=== PATIENT | female | born 1940 | race Caucasian/White ===

== ENCOUNTER 2020-02-12 09:09 | Emergency (ER) | payer MEDICARE ==
[~2020-02-12] VITALS: Ht 160 cm; Wt 77.6 kg
[~2020-02-12 09:09] MED LIST: COUMADIN5 MG PO; CYCLOBENZAPRINE10 MG PO; DILTIAZEM ER180 MG PO; LOVENOX80 MG SUB-Q; PREMARIN0.625 MG PO; TRAMADOL HCL50 MG PO; VITAMIN D35000 UNI1 PO
[2020-02-12] MEDS ORDERED: HYDROCHLOROTHIA25 MG PO (09:30)
[2020-02-12] MEDS ORDERED: LORATADINE10 MG PO (09:32)
[2020-02-12] MEDS ORDERED: ASPIR 8181 MG PO (09:32)
--- OUTSIDE RECORDS SUMMARY | 2020-02-12 10:16 | XMS ---
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 Cynthia has no Care Guidelines for this patient. Travis VISIT COUNT (12 MO.) 1 [facility] TOTAL 1 NOTE: Visits indicate total known visits. ED/C VISIT TRACKING (12 MO.) 02/12/2020 09:10 [facility] TYPE: Emergency COMPLAINT: - POSSIBLE BLOOD CLOT/ LEG INPATIENT VISIT TRACKING (12 MO.) No inpatient visits to display in this time frame [email or web address]
== END 2020-02-12 10:23 | disposition home or self-care (01) ==
LOC: ED 09:09
DX: M71.21 Synovial cyst of popliteal space [Baker], right knee (principal); I10 Essential (primary) hypertension; Z79.899 Other long term (current) drug therapy
CPT/HCPCS: 93971; 99283-25

== ENCOUNTER 2021-06-21 12:03 | Emergency (ER) | payer MEDICARE ==
[~2021-06-21] VITALS: Ht 160 cm; Wt 77.6 kg
[~2021-06-21 12:03] MED LIST changes: +ASPIR 8181 MG PO; +HYDROCHLOROTHIA25 MG PO; +LORATADINE10 MG PO
[2021-06-21] MEDS ORDERED: STOOL SOFTENER250 MG PO (13:21)
[2021-06-21] MEDS ORDERED: OXYCODONE HCL5 MG PO (13:21)
[2021-06-21] MEDS ORDERED: DILTIAZEM 24HR120 MG PO (13:21)
== END 2021-06-21 14:38 | disposition home or self-care (01) ==
LOC: ED 12:03
DX: M25.561 Pain in right knee (principal); I10 Essential (primary) hypertension; Z79.899 Other long term (current) drug therapy; W18.30XA Fall on same level, unspecified, initial encounter
CPT/HCPCS: 73560; 85025; 96374; 96375; 96376; 99284-25; J1170; J1885; J2405

== ENCOUNTER 2025-04-19 15:28 | Emergency (ER) | payer MEDICARE ==
[~2025-04-19] VITALS: Ht 160 cm; Wt 65.0 kg
[~2025-04-19 15:28] MED LIST changes: +DILTIAZEM 24HR120 MG PO; +OXYCODONE HCL5 MG PO; +STOOL SOFTENER250 MG PO
[2025-04-19] MEDS ORDERED: ondansetron HCL 4 MG/2 ML VIAL IV ONE (16:00)
[2025-04-19] MEDS ORDERED: MORPHINE SULFATE 4 MG/ML VIAL IV ONE (16:00)
[2025-04-19] MEDS ORDERED: HYDROCODON-ACE1 EA10 PO (18:29)
[2025-04-19] MEDS ORDERED: CEPHALEXIN500 M1 PO (18:29)
[2025-04-19] MEDS ORDERED: CEPHALEXIN MONOHYDRATE 500 MG HOME.PACK PO ONE (18:30)
[2025-04-19] MEDS ORDERED: HYDROCODONE BIT/ACETAMINOPHEN 5/325 MG 1 TAB HOME.PACK PO ONE (18:30)
[2025-04-19 19:35] VITALS: BP 138/54
== END 2025-04-19 19:35 | disposition home or self-care (01) ==
LOC: ED 15:28
DX: S81.811A Laceration without foreign body, right lower leg, initial encounter (principal); M25.571 Pain in right ankle and joints of right foot; I10 Essential (primary) hypertension; Z79.899 Other long term (current) drug therapy; W18.30XA Fall on same level, unspecified, initial encounter
CPT/HCPCS: 12006; 70450; 72125; 73590; 99284-25; A9270; J2270; J2405

== ENCOUNTER 2025-04-24 19:56 | Emergency (ER) | payer MEDICARE ==
[~2025-04-24] VITALS: Ht 160 cm; Wt 65.0 kg
[~2025-04-24 19:56] MED LIST changes: +CEPHALEXIN500 M1 PO; +HYDROCODON-ACE1 EA10 PO
--- OUTSIDE RECORDS SUMMARY | 2025-04-24 20:04 | XMS ---
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 Cynthia has no Care Guidelines for this patient. Travis V[facility] COUNT ([address] [facility] NOTE: Visits indicate total known visits. ED/C VISIT TRACKING (12 MO.) [facility] COMPLAINT: - FEVER, LEG PAIN 04/19/2025 15:[address] 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
[2025-04-24] MEDS ORDERED: MORPHINE SULFATE 4 MG/ML VIAL IV ONE (20:45)
[2025-04-24] MEDS ORDERED: ondansetron HCL 4 MG/2 ML VIAL IV ONE ×2 (20:45→22:15)
[2025-04-24 21:18] LABS: BASOPHILS 0.5 % (0.1-1.2); EOSINOPHILS 2.1 % (0.7-5.8); HEMATOCRIT 33.9 % (34.1-44.9); HEMOGLOBIN 11.4 g/dL (11.2-15.7); LYMPHOCYTES 11.9 % (19.3-51.7); MCH 31.1 PG (25.6-32.2); MCHC 33.6 g/dL (32.2-35.5); MCV 92.4 fL (79.4-94.8); MONOCYTES 7.7 % (4.7-12.5); NEUTROPHILS 77.5 % (34.0-71.1); PLATELET COUNT 215 K/uL (182-369); RBC 3.67 M/uL (3.93-5.22)
[2025-04-24 21:33] LABS: ALBUMIN 3.6 g/dL (3.4-5.0); ALBUMIN/GLOBULIN RATIO 1.16 (1.1-2.4); ANION GAP 12.8 (7-21); BILIRUBIN, TOTAL 0.7 mg/dL (0.2-1.0); BUN/CREATININE RATIO 18.18 (6.0-28.6); CALCIUM 8.7 mg/dL (8.5-10.1); CREATININE, SERUM 0.77 mg/dL (0.55-1.02); POTASSIUM 3.8 mmol/L (3.5-5.1); PROTEIN, TOTAL 6.7 g/dL (6.4-8.2)
[2025-04-24] MEDS ORDERED: DOXYCYCLINE MO100 MG PO (22:03)
[2025-04-24] MEDS ORDERED: CITALOPRAM HBR10 MG PO (22:04)
[2025-04-24] MEDS ORDERED: ONDANSETRON ODT8 MG PO (22:06)
[2025-04-24] MEDS ORDERED: ONDANSETRON 4 MG HOME.PACK SL ONE (22:15)
[2025-04-24] MEDS ORDERED: TRAMADOL HCL 50 MG HOME.PACK PO ONE (22:15)
[2025-04-24] MEDS ORDERED: PROMETHAZINE HCL 25 MG HOME.PACK PO ONE (22:15)
[2025-04-24 23:41] VITALS: BP 157/83
== END 2025-04-24 23:41 | disposition home or self-care (01) ==
LOC: ED 19:56
PROVIDERS: Family Medicine
DX: S81.811D Laceration without foreign body, right lower leg, subsequent encounter (principal); I10 Essential (primary) hypertension; X58.XXXD Exposure to other specified factors, subsequent encounter
CPT/HCPCS: 36415; 80053; 85025; 96374; 96375; 99284-25; A9270; J2270; J2405

== ENCOUNTER 2025-08-15 11:59 | Emergency (ER) | payer MEDICARE ==
[~2025-08-15] VITALS: Ht 160 cm; Wt 78.0 kg
[~2025-08-15 11:59] MED LIST changes: +CITALOPRAM HBR10 MG PO; +DOXYCYCLINE MO100 MG PO; +ONDANSETRON ODT8 MG PO
[2025-08-15] MEDS ORDERED: OXYMETAZOLINE HCL 30 ML BTL NAS ONE (12:15)
[2025-08-15 13:54] VITALS: BP 138/59
== END 2025-08-15 13:55 | disposition home or self-care (01) ==
LOC: ED 11:59
DX: R04.0 Epistaxis (principal); I10 Essential (primary) hypertension; Z79.899 Other long term (current) drug therapy
CPT/HCPCS: 99283